=== PATIENT | male | born 1960 | race Caucasian/White ===

== ENCOUNTER 2016-06-02 19:04 | Inpatient (IN) | payer OTHER ==
[~2016-06-02] VITALS: Ht 170.2 cm; Wt 62.1 kg
[2016-06-02] MEDS ORDERED: METHYLPRED SOD SUCC 125 MG/2 ML VIAL ONE (20:53)
[2016-06-02] MEDS ORDERED: SODIUM CHLORIDE 0.9% 1,000 ML ONE (20:53)
[2016-06-02] MEDS ORDERED: ONDANSETRON 4 MG VIAL ONE (20:53)
[2016-06-02] MEDS ORDERED: DILAUDID 1 MG/ML AMP ONE (20:53)
[2016-06-02] MEDS ORDERED: DUONEB INH ONE ×2 (21:14)
[2016-06-02] MEDS ORDERED: ALU/MAG/SIM 30 ML UDC PO PRN (23:40)
[2016-06-02] MEDS ORDERED: MAG HYDROX 30 ML UDC PO PRN (23:40)
[2016-06-02] MEDS ORDERED: ACETAMINOPHEN 325 MG TAB PO PRN (23:40)
[2016-06-02] MEDS ORDERED: BISACODYL 10 MG SUPP RECTAL PRN (23:40)
[2016-06-02] MEDS ORDERED: SALINE FLUSH 10 ML FLUSH PRN (23:40)
[2016-06-02] MEDS ORDERED: BISACODYL EC 5 MG TAB PO PRN (23:40)
[2016-06-03] VITALS (7 sets, daily range): BP systolic 126–142; RESP 18–22; TEMP 96.8–98.8; Ht 170.2 cm; Wt 62.1 kg
[2016-06-03] MEDS ORDERED: ONDANSETRON 4 MG VIAL ONE (00:01)
[2016-06-03] MEDS ORDERED: SODIUM CHLORIDE 0.9% 1,000 ML IV SCH ×2 (01:30→15:15)
[2016-06-03] MEDS ORDERED: NEB-ALBUTEROL 2.5 MG/3 ML INH SCH (03:00)
[2016-06-03] MEDS: NEB-ATROVENT INH SCH ×6 (04:00→23:17)
[2016-06-03] MEDS: SODIUM CHLORIDE 0.9% FLUSH BAG 500 ML IV SCH (05:28)
[2016-06-03] MEDS: NEB-Levalbuterol 0.31 MG/3 ML NEBU INH SCH ×5 (07:25→23:17)
[2016-06-03] MEDS: SALINE FLUSH 10 ML FLUSH SCH ×2 (07:40→20:00)
[2016-06-03] MEDS: PANTOPRAZOLE 40 MG VIAL IV SCH (09:27)
[2016-06-03] MEDS: PREDNISONE 20 MG TAB PO SCH (09:27)
[2016-06-04] MEDS: NEB-ATROVENT INH SCH ×6 (02:50→23:39)
[2016-06-04 03:00] VITALS: BP_SYST 135; RESP 18; TEMP 97.9
[2016-06-04] MEDS: SODIUM CHLORIDE 0.9% FLUSH BAG 500 ML IV SCH (05:39)
[2016-06-04] MEDS: NEB-Levalbuterol 0.31 MG/3 ML NEBU INH SCH ×5 (06:37→23:39)
[2016-06-04] MEDS: SALINE FLUSH 10 ML FLUSH SCH ×2 (07:33→19:48)
[2016-06-04 07:50] VITALS: BP_SYST 136; RESP 18; TEMP 97.1
[2016-06-04] MEDS: PREDNISONE 20 MG TAB PO SCH (09:16)
[2016-06-04] MEDS: PANTOPRAZOLE 40 MG VIAL IV SCH (09:16)
[2016-06-04 11:17] VITALS: BP_SYST 136; RESP 18; TEMP 97.9
[2016-06-04] MEDS: FENTANYL 12MCG/HR PATCH TRANSDERM SCH (13:17)
[2016-06-04 15:21] VITALS: BP_SYST 146; RESP 18; TEMP 97.5
[2016-06-04 19:41] VITALS: BP_SYST 153; RESP 18; TEMP 98.3
[2016-06-04 23:00] VITALS: BP_SYST 156; RESP 18; TEMP 97.8
[2016-06-04] MEDS: DILAUDID 1 MG/ML AMP IV PRN (23:18)
[2016-06-05] VITALS (7 sets, daily range): BP systolic 146–180; RESP 18–22; TEMP 97.4–98.5
[2016-06-05] MEDS: NEB-ATROVENT INH SCH ×6 (03:00→23:07)
[2016-06-05] MEDS: SODIUM CHLORIDE 0.9% FLUSH BAG 500 ML IV SCH (05:07)
[2016-06-05] MEDS: DILAUDID 1 MG/ML AMP IV PRN ×5 (05:07→23:44)
[2016-06-05] MEDS: PANTOPRAZOLE 40 MG TAB PO SCH (06:11)
[2016-06-05] MEDS: NEB-Levalbuterol 0.31 MG/3 ML NEBU INH SCH ×5 (06:35→23:07)
[2016-06-05] MEDS: SALINE FLUSH 10 ML FLUSH SCH ×2 (08:45→23:28)
[2016-06-05] MEDS: PREDNISONE 20 MG TAB PO SCH (08:45)
[2016-06-05] MEDS: cloNIDine 0.1 MG TAB PO SCH ×3 (12:13→20:28)
[2016-06-06] MEDS: NEB-ATROVENT INH SCH ×2 (03:05→05:22)
[2016-06-06] MEDS: SODIUM CHLORIDE 0.9% FLUSH BAG 500 ML IV SCH (03:11)
[2016-06-06 04:08] VITALS: BP_SYST 150; RESP 20; TEMP 98.4
[2016-06-06] MEDS: NEB-Levalbuterol 0.31 MG/3 ML NEBU INH SCH (05:22)
[2016-06-06] MEDS: PANTOPRAZOLE 40 MG TAB PO SCH (06:24)
[2016-06-06 07:43] VITALS: BP_SYST 154; RESP 18; TEMP 97.5
[2016-06-06] MEDS: DILAUDID 1 MG/ML AMP IV PRN (07:51)
[2016-06-06] MEDS: cloNIDine 0.1 MG TAB PO SCH (07:51)
[2016-06-06] MEDS: SALINE FLUSH 10 ML FLUSH SCH (07:52)
[2016-06-06] MEDS: PREDNISONE 20 MG TAB PO SCH (07:52)
[2016-06-06 09:40] VITALS: BP_SYST 154; RESP 18; TEMP 97.5
[2016-06-06] MEDS: FENTANYL 12MCG/HR PATCH TRANSDERM SCH (10:02)
[2016-06-07] MEDS ORDERED: REMOVE FENTANYL PATCH XX SCH (13:00)
== END 2016-06-06 10:45 | disposition home or self-care (01) | DRG 556 ==
LOC: ENRESERVTM → ENRESERVDT → ENRESERV → ER 19:04 → ENPENDDIS 23:40 → EMR 23:40 → 4THE 06-03 02:54
PROVIDERS: ADMIT Internal Medicine; ATTEND Internal Medicine
CPT/HCPCS: 36415; 71010; 72100; 73700; 80048; 80051; 80053; 81003; 82330; 82803; 83735; 83880; 83930; 83935; 84300; 85025; 85379; 93306; 94640; 94799; 96361; 96374; 96375; 96376; 99223; 99232; 99233; 99239

== ENCOUNTER 2016-06-14 14:41 | Emergency (ER) | payer OTHER ==
[2016-06-14] MEDS ORDERED: DILAUDID 1 MG/ML AMP ONE (15:18)
== END 2016-06-14 18:51 | disposition home or self-care (01) ==
LOC: ER 14:41
DX: M25.552 Pain in left hip (principal); R26.2 Difficulty in walking, not elsewhere classified; Z79.899 Other long term (current) drug therapy; F17.210 Nicotine dependence, cigarettes, uncomplicated
CPT/HCPCS: 96374